=== PATIENT | female | born 1995 | race African-American/Black ===

== ENCOUNTER 2017-10-18 12:13 | Emergency (ER) | payer OTHER ==
[~2017-10-18] VITALS: Ht 162.6 cm; Wt 56.7 kg
[2017-10-18 12:40] VITALS: BP 116/67
[2017-10-18] MEDS ORDERED: KETOROLAC 60 MG/2 ML INJ. IM ONE (13:45)
[2017-10-18] MEDS ORDERED: METH4TAB2 PO (14:33)
--- NOTE | 2017-10-18 14:34 | PHYS DOC ---
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 She states that she felt a pull in her side that has worsened as the day has gone on today. She was upstairs working and states that the pain increased so she came down to the emergency department to be checked. She denies saddle numbness, spontaneous loss of bowel or bladder or foot drop. Review of Systems Review of Systems Constitutional: Denies fever or chills [] Respiratory: Denies cough or shortness of breath [] Cardiovascular: No additional information not addressed in HPI [] GI: Denies abdominal pain, nausea, vomiting, bloody stools or diarrhea [] : Denies dysuria or hematuria [] Musculoskeletal: See history of present illness Integument: Denies rash or skin lesions [] Neurologic: Denies headache, focal weakness or sensory changes [] Endocrine: Denies polyuria or polydipsia [] All other systems were reviewed and found to be within normal limits, except as documented in this note. Current Medications Current Medications Current Medications Medications (Trade) Dose Ordered Sig/[facility] Start Time Stop Time Status Last Admin Dose Admin Ketorolac Tromethamine (Toradol Im) 60 mg 1X ONCE 10/18/17 13:45 10/18/17 13:46 DC 10/18/17 13:44 60 MG Allergies Allergies Allergies Coded Allergies Type Severity Reaction Last Updated Verified Sulfa (Sulfonamide Antibiotics) Allergy Unknown 10/18/17 Yes Physical Exam Physical Exam Constitutional: Well developed, well nourished, no acute distress, non-toxic appearance. [] Cardiovascular:Heart rate regular rhythm, no murmur [] Lungs & Thorax: Bilateral breath sounds clear to auscultation [] Abdomen: Bowel sounds normal, soft, no tenderness, no masses, no pulsatile masses. [] Skin: Warm, dry, no erythema, no rash. [] Back: tenderness over right SI joint radiating through her buttock into her leg , no CVA tenderness. [] Extremities: No tenderness, no cyanosis, no clubbing, ROM intact, no edema. [] Neurologic: Alert and oriented X 3, normal motor function, normal sensory function, no focal deficits noted. [] Psychologic: Affect normal, judgement normal, mood normal. [] Current Patient Data Vital Signs Vital Signs Date Time Temp Pulse Resp B/P (MAP) Pulse Ox O2 Delivery O2 Flow Rate FiO2 10/18/17 12:40 98.7 81 18 116/67 (83) 100 Room Air 98.7 EKG EKG [] Radiology/Procedures Radiology/Procedures [] Course & Med Decision Making Course & Med Decision Making Pertinent Labs and Imaging studies reviewed. (See chart for details) []The patient was given a shot of Toradol in the emergency department for pain. Dragon Disclaimer Dragon Disclaimer This electronic medical record was generated, in whole or in part, using a voice recognition dictation system. Departure Departure Impression: Primary Impression: Sciatica Disposition: 01 HOME, SELF-CARE Condition: STABLE Referrals: MAYI GIBSON MD (PCP) Patient Instructions: Sciatica Additional Instructions: Take the medication as prescribed. Follow-up with your primary care provider in 3 days if not improving or return to the emergency department if worsening. Scripts Methylprednisolone (MEDROL) 4 Mg Tab.ds.pk 1 PKG PO UD, #1 PKG Prov: IONA HUFF APRN 10/18/17 IONA HUFF APRN Oct 18, 2017 14:34
== END 2017-10-18 14:44 | disposition home or self-care (01) ==
LOC: ER 12:13
DX: M54.31 Sciatica, right side (principal); Z88.2 Allergy status to sulfonamides
CPT/HCPCS: 96372; 99283; J1885